=== PATIENT | female | born 1985 | race Caucasian/White ===

== ENCOUNTER 2018-11-30 12:49 | Emergency (ER) | payer OTHER ==
[~2018-11-30] VITALS: Ht 170.2 cm; Wt 88.5 kg
[2018-11-30] MEDS ORDERED: NORCO 5-325 TA1 EAC1 PO (13:49)
[2018-11-30] MEDS ORDERED: ULTRAM 50MG TAB50 MG PO (13:56)
[2018-11-30 14:17] VITALS: BP 139/91
[2018-11-30] MEDS ORDERED: CRUTCHES MISCELL (14:17)
== END 2018-11-30 14:18 | disposition home or self-care (01) ==
LOC: M.ERS 12:49
DX: S92.492A Other fracture of left great toe, initial encounter for closed fracture (principal); W01.198A Fall on same level from slipping, tripping and stumbling with subsequent striking against other object, initial encounter; Y92.89 Other specified places as the place of occurrence of the external cause; Y93.01 Activity, walking, marching and hiking; Y99.8 Other external cause status

== ENCOUNTER 2018-12-15 22:46 | Emergency (ER) | payer OTHER ==
[~2018-12-15] VITALS: Ht 172.7 cm; Wt 65.8 kg
[~2018-12-15 22:46] MED LIST: CRUTCHES MISCELL; NORCO 5-325 TA1 EAC1 PO; ULTRAM 50MG TAB50 MG PO
[2018-12-15 22:51] VITALS: BP 154/99
[2018-12-15] MEDS ORDERED: BACTRIM DS TAB1 EACH PO (22:58)
== END 2018-12-15 23:02 | disposition home or self-care (01) ==
LOC: M.ERS 22:46
DX: S80.862A Insect bite (nonvenomous), left lower leg, initial encounter (principal); W57.XXXA Bitten or stung by nonvenomous insect and other nonvenomous arthropods, initial encounter; Y92.89 Other specified places as the place of occurrence of the external cause; Y93.89 Activity, other specified; Y99.8 Other external cause status